=== PATIENT | male | born 2000 | race African-American/Black ===

== ENCOUNTER 2024-02-14 04:21 | Emergency (ER) | payer SELFPAY ==
[~2024-02-14] VITALS: Ht 180.3 cm; Wt 85.0 kg
[2024-02-14 04:26] VITALS: O2SAT 99
[2024-02-14] MEDS: MIDAZOLAM HCL 2 MG/2 ML VIAL IV ONE (05:10)
[2024-02-14] MEDS: SODIUM CHLORIDE 0.9% 1,000 ML IV ONE (05:10)
[2024-02-14 05:48] LABS: BASOPHILS % 0.4 % (0.0-2.0); EOSINOPHILS % 0.1 % (0.0-5.0); HEMATOCRIT. 41.1 % (42.0-52.0); HEMOGLOBIN. 13.8 g/dL (14.0-18.0); MEAN CORPUSCULAR HEMOGLOBIN 31.3 pg (28.0-32.0); MEAN CORPUSCULAR HGB CONC 33.5 g/dL (31.0-37.0); MEAN CORPUSCULAR VOLUME 93.6 fL (80.0-94.0); MONOCYTES % 4.4 % (2.0-8.0); NEUTROPHILS % 82.1 % (40.0-76.0); PLATELET 262 x1000/uL (130-400); RED CELL DISTRIBUTION WIDTH 13.6 % (11.6-14.6); WHITE BLOOD COUNT 6.2 x1000/uL (4.5-11.0)
[2024-02-14 05:52] LABS: CARBON DIOXIDE 27 mEq/L (21-32); CHLORIDE 102 mEq/L (98-107); POTASSIUM 3.4 mEq/L (3.5-5.1); SODIUM 136 mEq/L (136-145)
[2024-02-14 05:53] LABS: CALCIUM 9.5 mg/dL (8.7-10.4)
[2024-02-14 05:58] LABS: CREATININE 1.2 mg/dL (0.6-1.3); GLUCOSE 111 mg/dL (70-105); UREA NITROGEN BLOOD 8 mg/dL (9-23)
[2024-02-14 06:00] LABS: ACETAMINOPHEN < 2 ug/mL (10-30); CREATINE KINASE 455 IU/L (46-171)
[2024-02-14] MEDS ORDERED: LORAZEPAM 2MG/ML INJ IV ONE (06:00)
[2024-02-14] MEDS ORDERED: DIPHENHYDRAMINE 50MG/ML VIAL IV ONE (06:00)
[2024-02-14 06:36] LABS: ETHANOL BLOOD < 10 mg/dL (<10)
[2024-02-14] MEDS: DIPHENHYDRAMINE 50MG/ML VIAL IV NR (06:48)
[2024-02-14] MEDS: LORAZEPAM 2MG/ML INJ IV NR (07:05)
[2024-02-14 09:30] VITALS: BP 137/62; PULSE 59; RESP 17; TEMP 37.11408; O2SAT 97
== END 2024-02-14 10:00 | disposition home or self-care (01) ==
LOC: ER 04:21
DX: R45.1 Restlessness and agitation (principal); J45.909 Unspecified asthma, uncomplicated
CPT/HCPCS: 80048; 80307; 80329; 80320; 82550; 85025; 36415; 96361; 96374; 96375; 99291; J1200; J2060; J2250; J7030; G0480

== ENCOUNTER 2024-02-17 11:16 | Emergency (ER) | payer SELFPAY ==
[~2024-02-17] VITALS: Ht 177.8 cm; Wt 82.0 kg
[2024-02-17 11:20] VITALS: BP 118/68; PULSE 104; RESP 20; TEMP 98.8; O2SAT 99
[2024-02-17 20:38] LABS: CLARITY URINE CLEAR (CLEAR); COLOR URINE YELLOW (YELLOW); GLUCOSE URINE NEGATIVE (NEGATIVE); KETONES URINE NEGATIVE (NEGATIVE); LEUKOCYTE ESTERASE URINE NEGATIVE (NEGATIVE); NITRITE URINE NEGATIVE (NEGATIVE); OCCULT BLOOD URINE NEGATIVE (NEGATIVE); PROTEIN URINE NEGATIVE (NEGATIVE); SPECIFIC GRAVITY URINE 1.004 (1.005-1.030); UROBILINOGEN URINE 0.2 E.U./dL (0.2-1.0)
[2024-02-17 20:45] LABS: *AMPHETAMINES SCREEN URINE PRESUMPTIVE POSITIVE (NEGATIVE); *BARBITURATES SCREEN URINE NEGATIVE (NEGATIVE); *BENZODIAZEPINES SCREEN URINE NEGATIVE (NEGATIVE); *COCAINE SCREEN URINE NEGATIVE (NEGATIVE); CANNABINOID URINE SCREEN PRESUMPTIVE POSITIVE (NEGATIVE); ECSTASY MDMA SCREEN URINE NEGATIVE (NEGATIVE); METHADONE URINE SCREEN NEGATIVE (NEGATIVE); OPIATES URINE SCREEN NEGATIVE (NEGATIVE); PHENCYCLIDINE URINE SCREEN NEGATIVE (NEGATIVE)
== END 2024-02-17 13:00 | disposition home or self-care (01) ==
LOC: ER 11:16
DX: R45.1 Restlessness and agitation (principal); J45.909 Unspecified asthma, uncomplicated; F12.10 Cannabis abuse, uncomplicated
CPT/HCPCS: 80305; 81003; 99283

== ENCOUNTER 2024-09-27 02:06 | Emergency (ER) | payer SELFPAY ==
[~2024-09-27] VITALS: Ht 182.9 cm; Wt 83.0 kg
[2024-09-27 02:08] VITALS: TEMP 36.9
[2024-09-27 03:28] VITALS: O2SAT 98
[2024-09-27] MEDS: SODIUM CHLORIDE 0.9% 1,000 ML IV ONE (03:28)
[2024-09-27] MEDS: ONDANSETRON HCL 4MG/2ML INJ IV STA (03:28)
[2024-09-27] MEDS: MIDAZOLAM HCL 2 MG/2 ML VIAL IV ONE (03:28)
[2024-09-27 04:34] LABS: BASOPHILS % 0.1 % (0.0-2.0); EOSINOPHILS % 0.1 % (0.0-5.0); HEMATOCRIT. 43.2 % (42.0-52.0); HEMOGLOBIN. 14.4 g/dL (14.0-18.0); LYMPHOCYTES % 7.2 % (20.0-50.0); MEAN CORPUSCULAR HEMOGLOBIN 30.4 pg (28.0-32.0); MEAN CORPUSCULAR HGB CONC 33.2 g/dL (31.0-37.0); MEAN CORPUSCULAR VOLUME 91.6 fL (80.0-94.0); MONOCYTES % 6.1 % (2.0-8.0); NEUTROPHILS % 86.5 % (40.0-76.0); PLATELET 285 x1000/uL (130-400); RED BLOOD CELL COUNT 4.72 mill/uL (4.7-6.1); RED CELL DISTRIBUTION WIDTH 13.8 % (11.6-14.6); WHITE BLOOD COUNT 11.1 x1000/uL (4.5-11.0)
[2024-09-27 04:42] LABS: CHLORIDE 100 mEq/L (98-107); POTASSIUM 3.7 mEq/L (3.5-5.1); SODIUM 137 mEq/L (136-145)
[2024-09-27 04:43] LABS: CALCIUM 9.2 mg/dL (8.7-10.4); CARBON DIOXIDE 27 mEq/L (21-32)
[2024-09-27 04:48] LABS: GLUCOSE 130 mg/dL (70-105); UREA NITROGEN BLOOD 7 mg/dL (9-23)
[2024-09-27 04:49] LABS: ETHANOL BLOOD < 10 mg/dL (<10)
[2024-09-27 04:50] LABS: CREATINE KINASE 556 IU/L (46-171)
[2024-09-27] MEDS: IOHEXOL-300 100 ML BOTTLE ONE (06:25)
[2024-09-27 06:32] VITALS: BP 114/57; PULSE 74; RESP 16; O2SAT 99
== END 2024-09-27 07:17 | disposition short-term general hospital (02) ==
LOC: ER 02:06
DX: S36.039A Unspecified laceration of spleen, initial encounter (principal); S60.512A Abrasion of left hand, initial encounter; S20.312A Abrasion of left front wall of thorax, initial encounter; S00.81XA Abrasion of other part of head, initial encounter; S90.812A Abrasion, left foot, initial encounter; M54.2 Cervicalgia; V89.2XXA Person injured in unspecified motor-vehicle accident, traffic, initial encounter; Y93.89 Activity, other specified; Y92.89 Other specified places as the place of occurrence of the external cause; Y99.8 Other external cause status
CPT/HCPCS: 80048; 80320; 82550; 85025; 86850; 86900; 86901; 36415; 70450; 71260; 72125; 74177; 96361; 96374; 96375; 99285; Q9967; J2250; J2405; J7030; G0480